=== PATIENT | female | born 1940 | race Caucasian/White ===

== ENCOUNTER 2018-01-01 05:20 | Day surgery (SDC) | payer OTHER, BC ==
[2018-01-01] MEDS ORDERED: LR 1,000 ML IV ONE (05:43)
[2018-01-01] MEDS ORDERED: LIDOCAINE 1% 2 ML INJ ID PRN (05:43)
[2018-01-01 06:40] VITALS: PULSE 80
[2018-01-01] MEDS ORDERED: BUPIVACAINE/EPI 0.5% 30 ML SDV ONE (06:41)
[2018-01-01] MEDS ORDERED: MIDAZOLAM 2 MG/2 ML VIAL IVP ONE (07:06)
--- NOTE | 2018-01-01 07:06 | PDANEPAE ---
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 R knee scope 10/15. Endoscopy 12/14 ANE Review of Systems Review of systems is: negative Review of Systems: - Exercise capacity Exercise capacity: >=4 METS METS (RN): 4 METS ANE Patient History - Allergies Allergies/Adverse Reactions: Penicillins Allergy (Intermediate, Verified 12/26/17 16:15) Hives Sulfa (Sulfonamide Antibiotics) Allergy (Intermediate, Verified 12/26/17 16:15) Hives acyclovir Allergy (Mild, Verified 12/26/17 16:15) Rash azithromycin Allergy (Mild, Verified 12/26/17 16:15) Rash cat dander Allergy (Mild, Verified 12/26/17 16:18) Other-Enter Comments - Home Medications Home medications: home medication list seen and reviewed Home Medications: Aspirin 12/26/17 [Last Taken 12/25/17] Celexa 12/26/17 [Last Taken 01/01/18 04:00] Coreg 12/26/17 [Last Taken 12/31/17 23:00] Lantus Solostar 12/26/17 [Last Taken 12/31/17 23:00 12 units] Lisinopril 12/26/17 [Last Taken 12/31/17 08:00] Metformin HCl 12/26/17 [Last Taken 12/30/17] Multivitamins 12/26/17 [Last Taken 12/25/17] Prilosec 12/26/17 [Last Taken 12/30/17] - NPO status NPO Status: no food or drink >8 hours NPO Since - Liquids (Date): 12/31/17 NPO Since - Liquids (Time): 23:15 NPO Since - Solids (Date): 12/31/17 NPO Since - Solids (Time): 20:00 - Smoking Hx Smoking Status: Never smoked - Family Anes Hx Family Hx Anesthesia Complications: none ANE Labs/Vital Signs - Vital Signs Vital Signs: reviewed preoperatively; see RN documention for details Blood Pressure: 198/99 Heart Rate: 80 Respiratory Rate: 16 O2 Sat (%): 94 Height: 162.56 cm Weight: 70.76 kg ANE Physical Exam - Airway Neck exam: FROM Mallampati Score: Class 1 - Pulmonary Pulmonary: no respiratory distress - Cardiovascular Cardiovascular: regular rate and rhythym - ASA Status ASA Status: III ANE Anesthesia Plan Anesthesia Plan: GA w LMA
[2018-01-01] MEDS ORDERED: LABETALOL HCL 5 MG/ML 20 ML MDV IVP PRN (07:08)
[2018-01-01] MEDS ORDERED: DEXAMETHASONE 4 MG/ML VIAL IVP PRN (07:08)
[2018-01-01] MEDS ORDERED: LR 500 ML IV PRN (07:08)
[2018-01-01] MEDS ORDERED: fentaNYL 100 MCG/2 ML INJ IVP PRN (07:08)
[2018-01-01] MEDS ORDERED: NALOXONE HCL 0.4 MG/ML INJ IVP PRN (07:08)
[2018-01-01] MEDS ORDERED: ALBUTEROL 3 ML DEYVIAL IH PRN (07:08)
[2018-01-01] MEDS ORDERED: ONDANSETRON 4 MG/2 ML VIAL IVP PRN (07:08)
[2018-01-01] MEDS ORDERED: MIDAZOLAM 2 MG/2 ML VIAL ONE (07:11)
[2018-01-01] MEDS ORDERED: FAMOTIDINE 20 MG TAB PO ONE (07:13)
[2018-01-01] MEDS ORDERED: ACETAMINOPHEN 325 MG TAB PO ONE (07:13)
[2018-01-01] MEDS ORDERED: ceFAZolin 2 GM/SWFI 2 GM/20 ML SYR IVP ONE (07:13)
--- NOTE | 2018-01-01 07:14 | PDHPUP ---
History & Physical Update H&P update statement: This history and physical update is based on an assessment of the patient which was completed after admission or registration (within 24 hours), but prior to the surgery/procedure. H&P update: H&P reviewed & patient examined, no change in patient's condition since H&P completed
[2018-01-01] MEDS ORDERED: fentaNYL 100 MCG/2 ML INJ ONE (07:17)
[2018-01-01] MEDS ORDERED: PROPOFOL 200 MG/20 ML VIAL ONE (07:17)
--- NOTE | 2018-01-01 07:52 | POSTOPPROG ---
Post Op Note Date of Operation: 01/01/18 Surgeon: Alesia Gould Anesthesiologist: dr. acuna Anesthesia: GET(General Endotracheal) Pre-op Diagnosis: right knee meniscus tear Post-op Diagnosis: same Indication: right knee pain Procedure: R knee scope Inf/Abcess present in the surg proc area at time of surgery?: No EBL: Minimal
[2018-01-01 09:26] VITALS: TEMP 97.5
[2018-01-01 09:48] VITALS: RESP 18
[2018-01-01 10:30] VITALS: BP 160/73; O2SAT 100
--- NOTE | 2018-01-01 15:22 | POSTANESTH ---
Post Anesthetic Evaluation Cardiovascular Status: Normal, Stable Respiratory Status: Normal, Stable Level of Consciousness/Mental Status: Can Participate in Eval Pain Control: Adequate, Prn Tx Ordered Nausea/Vomiting Control: Adequate, Prn Tx Ordered Complications Possibly Related to Anesthesia: None Noted
--- NOTE | 2018-01-02 00:20 | GOP ---
[f rep st] OPERATIVE REPORT DATE OF OPERATION: 01/01/2018 SURGEON: Yeimi Gould MD PREOPERATIVE DIAGNOSIS: Right knee medial and lateral meniscus tears. POSTOPERATIVE DIAGNOSIS: Right knee medial and lateral meniscus tears. PROCEDURE PERFORMED: Right knee arthroscopic medial and lateral partial meniscectomy. FINDINGS: ESTIMATED BLOOD LOSS: Minimal. INDICATIONS: Patient is a 77-year-old female who has had mechanical symptoms and MRI showing medial and lateral meniscus tears. Risks and benefits were discussed with the patient. Informed consent wa s obtained. DESCRIPTION OF PROCEDURE: The patient was identified in preoperative holding area. Her right lower extremity was marked. She was brought back to the operating room. After induction of anesthesia, sh e was appropriately draped in the usual sterile fashion. A timeout was taken confirming patient, lat erality, procedure, allergies, antibiotic status. We then proceeded with right medial and lateral pa rapatellar incisions. Diagnostic arthroscopy was performed. She had no loose bodies in the suprapat ellar pouch, medial gutter, or lateral gutter. She had some mild, grade 1 to grade 2 changes on the patella. Trochlea had no chondral defects. The ACL and PCL were intact. Medial compartment showed some fissuring and grade 1 chondral changes of the medial femoral condyle. There was some posterior medial meniscus tear. This was debrided back to stable rim with the shaver. Lateral meniscus and la teral compartment were examined. There was minimal arthritic change. She did have lateral meniscus tear. This was debrided back to a stable rim. In total, less than 20% of each meniscus was debrided . Any excess fluid was removed. The incisions were closed with a single stitch, and patient was fredi zion in sterile dressing and brought to PACU in good condition with a well-perfused limb. Patient had some injection of some Marcaine for anesthesia of the portal sites. SURGEON: Yeimi Gould MD /[id number]/MODL
== END 2018-01-01 10:57 | disposition home or self-care (01) ==
LOC: FSGY 05:20
PROVIDERS: ATTEND Orthopaedic Surgery
PROC: 0SBC4ZZ Excision of Right Knee Joint, Percutaneous Endoscopic Approach (ICD-10-PCS; principal; 2018-01-01 07:15)
DX: M23.221 Derangement of posterior horn of medial meniscus due to old tear or injury, right knee (principal); M23.200 Derangement of unspecified lateral meniscus due to old tear or injury, right knee; M17.11 Unilateral primary osteoarthritis, right knee; F41.8 Other specified anxiety disorders; I25.10 Atherosclerotic heart disease of native coronary artery without angina pectoris; E11.9 Type 2 diabetes mellitus without complications; I10 Essential (primary) hypertension; G47.33 Obstructive sleep apnea (adult) (pediatric); Z87.440 Personal history of urinary (tract) infections; Z95.1 Presence of aortocoronary bypass graft; Z95.2 Presence of prosthetic heart valve; Z88.0 Allergy status to penicillin
CPT/HCPCS: J0171; J0690; J2250; J2704; J3010

== ENCOUNTER 2018-03-19 09:51 | Inpatient (IN) | payer OTHER, BC ==
[2018-06-11] MEDS ORDERED: ROPIVACAINE 0.2% 80 MG, EPINEPHrine 0.2 MG, KETOROLAC TROMETHAMINE 30 MG in SYRINGE 0 ML IU ONE (06:00)
[2018-06-11] MEDS ORDERED: TRANEXAMIC ACID 3,000 MG in NS (SYRINGE) 50 ML IRR ONE (06:00)
[2018-06-11] MEDS ORDERED: TRANEXAMIC ACID 3,000 MG/50 ML BAG IRR ONE (08:34)
[2018-06-11] MEDS ORDERED: FAMOTIDINE 20 MG TAB PO ONE (09:12)
[2018-06-11] MEDS ORDERED: DEXAMETHASONE 4 MG/ML VIAL IVP ONE (09:12)
[2018-06-11] MEDS ORDERED: ACETAMINOPHEN 325 MG TAB PO ONE (09:12)
[2018-06-11] MEDS ORDERED: ceFAZolin 2 GM/DEXTROSE 100 ML IV ONE (09:12)
[2018-06-11] MEDS ORDERED: LIDOCAINE 1% 2 ML INJ ID PRN (09:13)
[2018-06-11] MEDS ORDERED: LR 1,000 ML IV ONE (09:13)
[2018-06-11] MEDS ORDERED: MIDAZOLAM 2 MG/2 ML VIAL ONE (10:39)
--- NOTE | 2018-06-11 10:42 | PDANEPAE ---
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 allergen induced asthma - Neurologic History Hx Cerebrovascular Accident: No Hx Seizures: No Hx Dementia: No - Endocrine History Hx Diabetes: Yes Endocrine History Comment: type 11 - Renal History Hx Renal Disorders: No - Liver History Hx Hepatic Disorders: No - Neurological & Psychiatric Hx Hx Neurological and Psychiatric Disorders: Yes Neurological / Psychiatric History Comment: mild neuropathy in feet. anxiety - Cancer History Hx Cancer: No - Congenital Disorder History Hx Congenital Disorders: No - GI History Hx Gastrointestinal Disorders: No Gastrointestinal History Comment: gerd,difficulty swallowing - Other Health History Other Health History: none - Chronic Pain History Chronic Pain: Yes (right hip) - Surgical History Prior Surgeries: OHS 03/13. R knee scope 10/15. Endoscopy 12/14 ANE Review of Systems Review of Systems: - Exercise capacity METS (RN): 4 METS ANE Patient History - Allergies Allergies/Adverse Reactions: Penicillins Allergy (Intermediate, Verified 03/04/18 15:52) Hives Sulfa (Sulfonamide Antibiotics) Allergy (Intermediate, Verified 03/04/18 15:52) Hives acyclovir Allergy (Mild, Verified 03/04/18 15:52) Rash azithromycin Allergy (Mild, Verified 03/04/18 15:52) Rash cat dander Allergy (Mild, Verified 03/04/18 15:52) Other-Enter Comments erythromycin base Allergy (Verified 03/04/18 15:52) Rash glucagon Allergy (Verified 03/04/18 15:52) Vomiting - Home Medications Home Medications: Carvedilol [Coreg (*)] 12.5 mg PO BIDMEAL #0 12/26/17 [Last Taken 06/11/18 07:30 ] Insulin Glargine,Hum.rec.anlog [Lantus Solostar] 0 - 16 unit SQ HS PRN #0 [Last Taken 06/10/18 23:00 14 units] Lisinopril [Zestril 10 mg (*)] 10 mg PO BID #0 12/26/17 [Last Taken 06/10/18 22: 00] Multivitamins [Multivitamin (*)] 1 each PO DAILY #0 12/26/17 [Last Taken ] metFORMIN HCL [Glucophage 1000 mg] 1,000 mg PO BIDMEAL #0 12/26/17 [Last Taken 06/10/18 18:00] Carboxymethylcellulose 1% [Refresh Celluvisc (*)] 1 drop EACHEYE DAILY PRN 03/04 [Last Taken Unknown] Cyanocobalamin [Vitamin B12 (*)] 1,000 mcg PO DAILY 03/04/18 [Last Taken ] Fexofenadine HCl [Nevin Allergy] 60 mg PO DAILY PRN 03/04/18 [Last Taken Unknown] Herbals/Supplements -Info Only 1 ea PO DAILY 03/04/18 [Last Taken Unknown] Montelukast Sodium [Singulair 10 mg (*)] 10 mg PO DAILY@1800 PRN 03/04/18 [Last Taken Unknown] Vitamin B Complex [Vitamin B Complex (OTC)] 1 each PO DAILY 03/04/18 [Last Taken 05/28/18] - NPO status NPO Since - Liquids (Date): 06/11/18 NPO Since - Liquids (Time): 07:30 NPO Since - Solids (Date): 06/10/18 NPO Since - Solids (Time): 23:00 - Smoking Hx Smoking Status: Never smoked - Family Anes Hx Family Hx Anesthesia Complications: none ANE Labs/Vital Signs - Vital Signs Blood Pressure: 197/97 Heart Rate: 87 Respiratory Rate: 16 O2 Sat (%): 0 Height: 162.56 cm Weight: 70.76 kg ANE Physical Exam - Airway Mallampati Score: Class 2 - ASA Status ASA Status: III ANE Anesthesia Plan Anesthesia Plan: spinal Regional Anesthesia: adductor canal FNB
[2018-06-11] MEDS ORDERED: BUPIVACAINE/DEXTROSE 7.5MG/ML 2 ML SPINAL AMP SP ONE (10:43)
[2018-06-11] MEDS ORDERED: fentaNYL 100 MCG/2 ML INJ ONE (10:43)
[2018-06-11] MEDS ORDERED: PROPOFOL/EMULSION 500 MG/50 ML BOTTLE IV ONE (10:43)
[2018-06-11] MEDS ORDERED: ROPIVACAINE HCL 150 MG/30 ML INJ ONE (11:10)
[2018-06-11] MEDS ORDERED: PROMETHAZINE HCL 25 MG/ML INJ IVP PRN ×2 (12:05→12:18)
[2018-06-11] MEDS ORDERED: POLYETHYLENE GLYCOL 3350 17 GM PKT PO PRN (12:05)
[2018-06-11] MEDS ORDERED: DIPHENOXYLATE/ATROPINE LOMOTIL 1 TAB PO PRN (12:05)
[2018-06-11] MEDS ORDERED: LACTULOSE 20 GM/30 ML UDCUP PO PRN (12:05)
[2018-06-11] MEDS ORDERED: TEMAZEPAM 15 MG CAP PO PRN (12:05)
[2018-06-11] MEDS ORDERED: ONDANSETRON DISINTEGRATING 4 MG TAB PO PRN (12:05)
[2018-06-11] MEDS ORDERED: PROMETHAZINE HCL 25 MG SUPPR PR PRN (12:05)
[2018-06-11] MEDS ORDERED: diphenhydrAMINE 25 MG CAP PO PRN (12:05)
[2018-06-11] MEDS ORDERED: MAGNESIUM HYDROXIDE 30 ML UDCUP PO PRN (12:05)
[2018-06-11] MEDS ORDERED: oxyCODONE IR 5 MG TAB PO PRN (12:05)
[2018-06-11] MEDS ORDERED: METOCLOPRAMIDE 10 MG/2 ML VIAL IVP PRN ×2 (12:05→12:18)
[2018-06-11] MEDS ORDERED: BISACODYL 10 MG SUPP PR PRN (12:05)
[2018-06-11] MEDS ORDERED: ONDANSETRON 4 MG/2 ML VIAL IVP PRN ×2 (12:05→12:18)
[2018-06-11] MEDS ORDERED: CYCLOBENZAPRINE 10 MG TAB PO PRN (12:05)
--- NOTE | 2018-06-11 12:05 | POSTOPPROG ---
Post Op Note Date of Operation: 06/11/18 Surgeon: Alesia Moreau Director Of Instruction: rashida moreau PA-C Anesthesiologist: dr. vincent Anesthesia: Spinal, Other (Specify) (adductor canal block) Pre-op Diagnosis: left knee OA Post-op Diagnosis: same Indication: left knee pain Procedure: L TKA Findings: severe knee OA Inf/Abcess present in the surg proc area at time of surgery?: No EBL: 50-100
[2018-06-11] MEDS ORDERED: D50W 25 GM/50 ML SYR IVP PRN (12:08)
[2018-06-11] MEDS ORDERED: LR 500 ML IV PRN (12:18)
[2018-06-11] MEDS ORDERED: fentaNYL 100 MCG/2 ML INJ IVP PRN (12:18)
[2018-06-11] MEDS ORDERED: PHENYLEPHRINE HCL 100 MCG/ML SYR IVP PRN (12:18)
[2018-06-11] MEDS ORDERED: HYDROCODONE/APAP 5/325 TAB PO PRN (12:18)
[2018-06-11] MEDS ORDERED: NALOXONE HCL 0.4 MG/ML INJ IVP PRN (12:18)
--- NOTE | 2018-06-11 12:20 | POSTANESTH ---
Post Anesthetic Evaluation Cardiovascular Status: Similar to Pre-Op Cond Respiratory Status: Normal, Stable Level of Consciousness/Mental Status: Can Participate in Eval Pain Control: Adequate, Prn Tx Ordered Nausea/Vomiting Control: Adequate, Prn Tx Ordered Complications Possibly Related to Anesthesia: None Noted
--- NOTE | 2018-06-11 12:27 | PDMN ---
Medical Necessity Medical necessity: Pt meets IP criteria per PA & MCG S-700; est los >2 mn s/p L TKA cpt 98918; requiring further monitoring & therapies; comorbid advanced age, HTN, diabetes, CAD, sleep apnea; per H&P & order 06/11/18
[2018-06-11] MEDS ORDERED: LR 1,000 ML IV SCH (12:30)
[2018-06-11] MEDS ORDERED: CARBOXYMETHYLCELLULOSE 1% 0.4 ML DROPERETTE EACHEYE PRN (13:21)
[2018-06-11] MEDS ORDERED: LISINOPRIL 10 MG TAB PO ONE (13:45)
[2018-06-11] MEDS ORDERED: PNEUMOCOCCAL 0.5ML VACCINE VIAL IM ONE (14:30)
[2018-06-11] MEDS: ceFAZolin 2 GM/DEXTROSE 100 ML IV SCH (18:07)
[2018-06-11] MEDS: ACETAMINOPHEN 325 MG TAB PO SCH (18:08)
[2018-06-11] MEDS: CARVEDILOL 6.25 MG TAB PO SCH (18:08)
[2018-06-11] MEDS: metFORMIN HCL 500 MG TAB PO SCH (18:09)
--- NOTE | 2018-06-11 18:27 | GOP ---
DATE OF OPERATION: 06/11/2018 SURGEON: Yeimi Gould MD MUSEUM ARCHIVIST: SAMIRA Sher. ANESTHESIA: Spinal. PREOPERATIVE DIAGNOSIS: Left knee osteoarthritis. POSTOPERATIVE DIAGNOSIS: Left knee osteoarthritis. PROCEDURE PERFORMED: Left total knee arthroplasty. FINDINGS: ESTIMATED BLOOD LOSS: 30 cc. INDICATIONS: This is a 77-year-old female with severe and progressive pain and deformity of the left knee unresponsive to conservative care. Risks and benefits of the surgical intervention were explai anastasia in detail. DESCRIPTION OF PROCEDURE: The patient was brought to the operative room and placed on the table in t he supine position. Spinal anesthesia was induced without difficulty. A pneumatic tourniquet was ap plied about the left proximal thigh, and the leg was prepped and draped in a sterile fashion. The le g puente was applied. After exsanguination by elevation the tourniquet was inflated to 250 mm of manan cury. Incision was made anterior medial from the tibial tuberosity to a point 2 cm proximal to the superior pole of the patella. Medial parapatellar arthrotomy was carried out from the superior pole of the p atella and posteriorly in line with the fibers of the Type II VMO. The medial collateral ligament wa s elevated and the infrapatellar fat pad was resected. The patella was everted and the articular surface was excised. A 35 mm patellar button was placed. Attention was turned first to the distal aspect of the femur. After exposure of the femur, 2 half pi ns were placed for fixation of the femoral array. In a similar fashion, 2 pins were placed anteromed ial on the tibia for fixation of the tibial array. External land marking and registration of the hip center was performed without difficulty. Internal femoral and tibial registration was carried out w ithout difficulty and the femoral and tibial checkpoints were placed and verified for accuracy. Attention was turned to the femur. The foot print for the size 4 femoral component was cut with the saw using the [employer] robotic system and verified for accuracy against the CT based plan. In a similar f ashion, the saw was used to cut the footprint for the size 4 tibial component using the [employer] system an d verified for accuracy against the CT based plan. The tibial articular surface was excised without d ifficulty, followed by the intercondylar box cut. The knee was extended and the remnants of the medial and lateral meniscus were excised. The posterior capsule was injected with ropivacaine, epinephrine and Toradol. A size 4 tibial tray was positioned . Trial reduction was then carried out. There was excellent range of motion, alignment, and stability using the 4 x 9 mm polyethylene. All trials were then removed. The joint was thoroughly irrigated and carefully dried. The components were implanted. The permanent 9 mm polyethylene was placed without difficulty. The tourniquet was deflated and all bleeders were coagulated. The wound was thoroughly irrigated and closed using interrupted sutures of 2-0 Vicryl for the joint capsule. The subcu was closed with 3-0 V icryl and the skin with 4-0 Monocryl. Dermabond and Steri-Strips were applied followed by a compress nadeem dressing. The patient was then moved from the operating room to the recovery room in good conditi on, having tolerated the procedure well. /[id number]/MODL
[2018-06-11] MEDS ORDERED: INSULIN GLARGINE 100 UNITS/ML UNIT SC SCH (21:00)
[2018-06-11] MEDS: FAMOTIDINE 20 MG TAB PO SCH (21:47)
[2018-06-11] MEDS: ASPIRIN 81 MG CHEWABLE TAB PO SCH (21:47)
[2018-06-11] MEDS: SENNOSIDES/DOCUSATE SODIUM TAB PO SCH (21:47)
[2018-06-11] MEDS: LISINOPRIL 10 MG TAB PO SCH (21:47)
[2018-06-12] MEDS: ACETAMINOPHEN 325 MG TAB PO SCH ×2 (00:08→06:15)
[2018-06-12] MEDS: ceFAZolin 2 GM/DEXTROSE 100 ML IV SCH (02:01)
[2018-06-12] MEDS: SENNOSIDES/DOCUSATE SODIUM TAB PO SCH (08:42)
[2018-06-12] MEDS: LISINOPRIL 10 MG TAB PO SCH (08:43)
[2018-06-12] MEDS: ASPIRIN 81 MG CHEWABLE TAB PO SCH (08:43)
[2018-06-12] MEDS: metFORMIN HCL 500 MG TAB PO SCH (08:44)
[2018-06-12] MEDS: CARVEDILOL 6.25 MG TAB PO SCH (08:44)
[2018-06-12] MEDS: FAMOTIDINE 20 MG TAB PO SCH (08:44)
--- NOTE | 2018-06-12 08:45 | SOAPPROG ---
SOAP Progress Note Assessment/Plan: Assessment: Patient is doing well POD 1 s/p L TKA Pain management: pain is well controlled on oral pain meds. VTE ppx: recommend aspirin 81 mg BID for 4 weeks, cont NATALIA and SCDs Anemia: level is expected initially postop. Asymptomatic. Continue to monitor D/c planning: d/c to home today pending release from PT Plan: 06/12/18 08:44 Subjective: patient is doing well, denies SOB, chest pain and N/V. Objective: Vital Signs Temp Pulse Resp BP Pulse Ox 36.5 C 78 16 140/68 H 100 06/12/18 07:17 06/12/18 07:17 06/12/18 07:17 06/12/18 07:17 06/12/18 07:17 Laboratory Results 06/12/18 04:37 06/12/18 04:37 06/11/18 06/12/18 06/13/18 05:59 05:59 05:59 Intake Total 200 1000 Output Total 1850 100 Balance -1650 900 LLE; incision dressing is clean and dry, NVI, +pf/df ICD10 Worksheet Patient Problems: Problems Problem Status Onset Primary localized osteoarthritis of left knee Acute Right knee meniscal tear Acute Right knee pain Acute
[2018-06-12 08:52] VITALS: BP 162/74
--- NOTE | 2018-06-12 09:10 | GDS ---
ADMISSION DIAGNOSIS: Left knee osteoarthritis. DISCHARGE DIAGNOSIS: Left knee osteoarthritis. PROCEDURE: Left total knee arthroplasty. VTE PROPHYLAXIS: Recommend aspirin 81 mg twice daily for VTE prophylaxis. BRIEF DESCRIPTION OF HOSPITAL STAY: Patient was admitted for an elective joint arthroplasty. The pa aundrea tolerated the procedure well and has passed physical therapy. The patient was given appropriat e antibiotic prophylaxis and venous thromboembolism prophylaxis. The patient's pain was well control led on oral pain medication, patient was holding down food, and had urinated. Decision was made to d ischarge the patient. The patient was given post-operative prescriptions pre-operatively. PLAN: Please follow up as scheduled Dr. Gould's office June 30 at 9:30. /[id number]/MODL
--- NOTE | 2018-06-12 10:26 | ASMTLACE ---
BOB Length of stay for Answers: 2 days current admission Acuity / Level of Answers: Yes Care: Did the patient have an inpatient admission? Comorbidities - select Answers: Congestive heart failure all that apply Coronary Artery Disease Diabetes (uncontrolled or controlled) Opioid dependence / Chronic pain Other Notes: HTN; GERD # of Emergency department Answers: 0 visits in the last 6 months Social determinants Answers: Mental health diagnosis (anxiety, depression, pers onality disorders, etc.) Score: 18 Date Signed: 06/12/2018 10:25 AM Electronically Signed By:Shawna Schmidt
== END 2018-06-12 11:44 | disposition home or self-care (01) | DRG 470 ==
LOC: F3N 06-11 08:59 → OBSVTOIN 06-11 12:08 → EDSTATUS 06-11 13:15 → F3N 06-11 13:28
PROVIDERS: ADMIT Orthopaedic Surgery; ATTEND Orthopaedic Surgery
PROC: 0SRD0JZ Replacement of Left Knee Joint with Synthetic Substitute, Open Approach (ICD-10-PCS; principal; 2018-06-11 11:00)
DX: M17.12 Unilateral primary osteoarthritis, left knee (principal); I10 Essential (primary) hypertension; Z95.1 Presence of aortocoronary bypass graft; Z95.3 Presence of xenogenic heart valve; G47.33 Obstructive sleep apnea (adult) (pediatric); E11.40 Type 2 diabetes mellitus with diabetic neuropathy, unspecified; F41.9 Anxiety disorder, unspecified
CPT/HCPCS: 97110-GP; 97116-GP; 97161-GP; 97165-GO; 97530-GP; G8978-GP-CI; G8978-GP-CK; G8979-GP-CI; G8980-GP-CI; G8987-GO-CI; G8988-GO-CI; G8989-GO-CI; J0171; J0690; J1100; J1815; J1885; J2250; J2704; J2795; J3010